=== PATIENT | male | born 1950 | race Caucasian/White ===

== ENCOUNTER 2019-02-12 23:45 | Emergency (ER) | payer MEDICARE, OTHER ==
[~2019-02-12] VITALS: Ht 177.8 cm; Wt 105.7 kg
--- OUTSIDE RECORDS SUMMARY | 2019-02-12 23:49 | XMS REPORT | Summary of Care ---
Author Author [facility] Address Unknown Phone Unavailable Encounter HQ Encntr_alias(FIN) [id number] Date(s): 10/31/16 - 11/29/16 SABIHA Noe Discharge Disposition: Home or Self Care Attending Physician: Stiven Matt MD Vital Signs No data available for this section Problem List Condition Effective Dates Status Health Status Informant Diabetes(Confirmed) Active Hypertension(Confirm Active ed) Arthritis(Confirmed) Active 1 Numbness of Resolved fingers(Confirmed) 1right knee Allergies, Adverse Reactions, Alerts Substance Reaction Severity Status NKDA Active Medications No data available for this section Results No data available for this section Immunizations No data available for this section Procedures Procedure Date Related Diagnosis Body Site ACL - Repair of anterior cruciate ligament Biopsy of thyroid Social History Social History Type Response Alcohol Past Smoking Status Never smoker; Exposure to Tobacco Smoke None; Cigarette Smoking Last 365 Days No; Reg Smoking Cessation Counseling No Assessment and Plan No data available for this section
--- OUTSIDE RECORDS SUMMARY | 2019-02-12 23:49 | XMS REPORT | Summary of Care ---
Author Author [facility] Organization [facility] Address Unknown Phone Unavailable Encounter KALE Peña(MARIO) [id number] Date(s): 09/05/16 - 09/07/16 [facility] [address] [place] [address]- [phone] Final: Unilateral primary osteoarthritis, left knee Discharge Disposition: Home or Self Care Attending Physician: Stiven Matt MD Admitting Physician: Stiven Matt MD Referring Physician: Stiven Matt MD Vital Signs 1 2 3 Most recent to oldest [Reference Range]: 177.8 cm (09/05/16 1:34 PM) 177.8 cm (08/30/16 10:03 AM) Height 97.5 DegF (09/07/16 12:00 PM) 97.7 DegF (09/07/16 8:00 AM) 97.9 DegF (09/07/16 4:11 AM) Temperature Oral [96.4-99.1 DegF] 163/82 mmHg *HI* (09/07/16 12:00 PM) 148/76 mmHg *HI* (09/07/16 8:00 AM) 169/89 mmHg *HI* (09/07/16 4:58 AM) Blood Pressure [90-140/60-90 mmHg] 16 BRMIN (09/07/16 12:00 PM) 16 BRMIN (09/07/16 8:00 AM) 16 BRMIN (09/07/16 4:11 AM) Respiratory Rate [14-20 BRMIN] 79 bpm (09/07/16 12:00 PM) 79 bpm (09/07/16 8:00 AM) 71 bpm (09/07/16 4:58 AM) Peripheral Pulse Rate [60-100 bpm] 108.182 kg (09/05/16 1:34 PM) 102.182 kg (08/30/16 10:03 AM) Weight 34.22 m2 (09/05/16 1:34 PM) 32.32 m2 (08/30/16 10:03 AM) Body Mass Index Problem List Condition Effective Dates Status Health Status Informant Diabetes(Confirmed) Active Hypertension(Confirm Active ed) Arthritis(Confirmed) Active 1 Numbness of Resolved fingers(Confirmed) 1right knee Allergies, Adverse Reactions, Alerts Substance Reaction Severity Status NKDA Active Medications acetaminophen 650 mg, 2 tab, Route: PO, Drug form: TAB, Q4H, Dosing Weight 102.182, kg, PRN Pa in 1-3/Temp > 100.4 F, Start date: 09/05/16 11:59:00 CDT, Duration: 30 day, Stop date: 10/05/16 11:58:00 CDT Notes: Do not exceed 4 gm/day. (Same as: Tylenol) Start Date: 09/05/16 Stop Date: 09/07/16 Status: Discontinued acetaminophen (ANES) Route: IV, Drug form: INJ, ONCE, Stop date: 09/05/16 10:59:00 CDT Start Date: 09/05/16 Stop Date: 09/05/16 Status: Completed Al hydroxide/Mg hydroxide/simethicone 200 mg-200 mg-20 mg/5 mL oral suspension 30 ml, Route: PO, Drug Form: SUSP, Dosing Weight 102.182, kg, Q4H, PRN Indigesti on, Start date: 09/05/16 11:59:00 CDT, Duration: 30 day, Stop date: 10/05/16 11: 58:00 CDT Notes: (aluminum hydroxide-magnesium hyd-simethicone 298-209-03km/5ml 30 ml ud S US) Start Date: 09/05/16 Stop Date: 09/07/16 Status: Discontinued aspirin 325 mg, 1 tab, Route: PO, Drug form: TAB, Q12H, Dosing Weight 102.182, kg, For p atients with risk of bleeding, Start date: 09/05/16 16:00:00 CDT, Duration: 30 d ay, Stop date: 10/05/16 9:00:00 CDT Notes: Take with food. Start Date: 09/05/16 Stop Date: 09/07/16 Status: Discontinued aspirin 325 mg tablet, enteric coated 325 mg, PO, Q12H, # 60 tab, 0 Refill(s) Start Date: 09/06/16 Status: Ordered aspirin 325 mg tablet, enteric coated 325 mg, Route: PO, BID, Dosing Weight 102.182, kg, Start date: 09/05/16 17:00:00 CDT, Duration: 30 day, Stop date: 10/05/16 9:00:00 CDT Start Date: 09/05/16 Stop Date: 09/05/16 Status: Deleted atorvastatin 20 mg, 2 tab, Route: PO, Drug form: TAB, Bedtime, Dosing Weight 102.182, kg, Sta rt date: 09/05/16 21:00:00 CDT, Duration: 30 day, Stop date: 10/04/16 21:00:00 C DT Notes: (Same As: Lipitor) Start Date: 09/05/16 Stop Date: 09/07/16 Status: Discontinued atorvastatin 20 mg oral tablet 20 mg=1 tab, PO, Bedtime, # 30 tab, 0 Refill(s) Start Date: 08/30/16 Status: Ordered ceFAZolin (ANES) Route: IV, Drug form: INJ, ONCE, Stop date: 09/05/16 10:59:00 CDT Start Date: 09/05/16 Stop Date: 09/05/16 Status: Completed ceFAZolin (SCIP) 1 gm, 100 mL, Route: IVPB, Drug form: INJ, Q8H, Dosing Weight 102.182, kg, Start date: 09/05/16 16:15:00 CDT, Duration: 1 doses or times, Stop date: 09/05/16 16 :15:00 CDT Start Date: 09/05/16 Stop Date: 09/05/16 Status: Completed dexamethasone (ANES) Route: IV, Drug form: INJ, ONCE, Stop date: 09/05/16 10:59:00 CDT Start Date: 09/05/16 Stop Date: 09/05/16 Status: Completed Dextrose 50% Syringe 12.5 gm, 25 mL, Route: IVP, Drug Form: INJ, Dosing Weight 102.182, kg, PRN, PRN Blood Glucose Results, Start date: 09/05/16 13:28:00 CDT, Duration: 30 day, Stop date: 10/05/16 13:27:00 CDT Start Date: 09/05/16 Stop Date: 09/07/16 Status: Discontinued Dextrose 50% Syringe 25 gm, 50 mL, Route: IVP, Drug Form: INJ, Dosing Weight 102.182, kg, PRN, PRN Bl ood Glucose Results, Start date: 09/05/16 13:28:00 CDT, Duration: 30 day, Stop d ate: 10/05/16 13:27:00 CDT Start Date: 09/05/16 Stop Date: 09/07/16 Status: Discontinued Dilaudid 0.5 mg, Route: IVP, ONCE, Dosing Weight 102.182, kg, Priority: STAT, Start date: 09/05/16 12:18:00 CDT, Stop date: 09/05/16 12:18:00 CDT Start Date: 09/05/16 Stop Date: 09/05/16 Status: Completed Dilaudid 0.5 mg, Route: IVP, ONCE, Dosing Weight 102.182, kg, Priority: STAT, Start date: 09/05/16 12:39:00 CDT, Stop date: 09/05/16 12:39:00 CDT Start Date: 09/05/16 Stop Date: 09/05/16 Status: Completed diphenhydrAMINE 25 mg, 1 tab, Route: PO, Drug form: TAB, Q6H, Dosing Weight 102.182, kg, PRN Itc césar, Start date: 09/05/16 11:59:00 CDT, Duration: 30 day, Stop date: 10/05/16 1 1:58:00 CDT Start Date: 09/05/16 Stop Date: 09/07/16 Status: Discontinued docusate sodium 100 mg oral capsule 100 mg, 1 cap, Route: PO, Drug form: CAP, BID, Dosing Weight 102.182, kg, Start date: 09/05/16 17:00:00 CDT, Duration: 30 day, Stop date: 10/05/16 9:00:00 CDT Notes: (Same as: Colace) (Do Not Crush) Start Date: 09/05/16 Stop Date: 09/07/16 Status: Discontinued Dulcolax Laxative 5 mg, 1 tab, Route: PO, Drug form: ECTAB, Q24H, Dosing Weight 102.182, kg, PRN C onstipation, Start date: 09/05/16 11:59:00 CDT, Duration: 30 day, Stop date: 11:58:00 CDT Notes: (Same As: Dulcolax, Correctol) (Do Not Crush) "Do Not Crush" Start Date: 09/05/16 Stop Date: 09/07/16 Status: Discontinued ePHEDrine (ANES) Route: IV, Drug form: INJ, ONCE, Stop date: 09/05/16 11:59:00 CDT Start Date: 09/05/16 Stop Date: 09/05/16 Status: Completed fentaNYL (ANES) Route: IV, Drug form: INJ, ONCE, Stop date: 09/05/16 10:59:00 CDT Start Date: 09/05/16 Stop Date: 09/05/16 Status: Completed glucagon 1 mg, Route: IM, Drug form: PDR/INJ, PRN, Dosing Weight 102.182, kg, PRN Blood G lucose Results, Start date: 09/05/16 13:28:00 CDT, Duration: 30 day, Stop date: 10/05/16 13:27:00 CDT Start Date: 09/05/16 Stop Date: 09/07/16 Status: Discontinued glycopyrrolate (ANES) Route: IV, Drug form: INJ, ONCE, Stop date: 09/05/16 11:34:00 CDT Start Date: 09/05/16 Stop Date: 09/05/16 Status: Completed hydrALAZINE 10 mg, 0.5 mL, Route: IVP, Drug form: INJ, Q6H, Dosing Weight 102.182, kg, PRN E levated BP, Start date: 09/05/16 13:19:00 CDT, Duration: 30 day, Stop date: 09/17 03/05 13:18:00 CDT, sbp> 155 Notes: (Same as: Apresoline)Push over 5 minutes Start Date: 09/05/16 Stop Date: 09/07/16 Status: Discontinued hydromorphone 0.5 mg, 0.5 mL, Route: IVP, Drug form: INJ, Q3H, Dosing Weight 102.182, kg, PRN Pain Score 7-10, Start date: 09/05/16 11:59:00 CDT, Duration: 30 day, Stop date: 10/05/16 11:58:00 CDT Start Date: 09/05/16 Stop Date: 09/07/16 Status: Discontinued insulin aspart 10 unit, 0.1 mL, Route: SUB-Q, Drug form: SOLN, TID-Before Meals, Dosing Weight 102.182, kg, PRN Blood Glucose Results, Start date: 09/05/16 13:28:00 CDT, Durat ion: 30 day, Stop date: 10/05/16 13:27:00 CDT Notes: Roll in palms of hands gently; Do not shake vigorously. (Same as: Jason Dotson)"single patient use only"WASTE: F/P - Black; E - Municipal Trash Bin Stable f or 28 days at room temperature.Expires in days from Date Start Date: 09/05/16 Stop Date: 09/07/16 Status: Discontinued insulin aspart 2 unit, 0.02 mL, Route: SUB-Q, Drug form: SOLN, TID-Before Meals, Dosing Weight 102.182, kg, PRN Blood Glucose Results, Start date: 09/05/16 13:28:00 CDT, Durat ion: 30 day, Stop date: 10/05/16 13:27:00 CDT Notes: Roll in palms of hands gently; Do not shake vigorously. (Same as: Jason Dotson)"single patient use only"WASTE: F/P - Black; E - Municipal Trash Bin Stable f or 28 days at room temperature.Expires in days from Date Start Date: 09/05/16 Stop Date: 09/07/16 Status: Discontinued insulin aspart 8 unit, 0.08 mL, Route: SUB-Q, Drug form: SOLN, TID-Before Meals, Dosing Weight 102.182, kg, PRN Blood Glucose Results, Start date: 09/05/16 13:28:00 CDT, Durat ion: 30 day, Stop date: 10/05/16 13:27:00 CDT Notes: Roll in palms of hands gently; Do not shake vigorously. (Same as: NovoLUIS G)"single patient use only"WASTE: F/P - Black; E - Municipal Trash Bin Stable f or 28 days at room temperature.Expires in days from Date Start Date: 09/05/16 Stop Date: 09/07/16 Status: Discontinued insulin aspart 6 unit, 0.06 mL, Route: SUB-Q, Drug form: SOLN, TID-Before Meals, Dosing Weight 102.182, kg, PRN Blood Glucose Results, Start date: 09/05/16 13:28:00 CDT, Durat ion: 30 day, Stop date: 10/05/16 13:27:00 CDT Notes: Roll in palms of hands gently; Do not shake vigorously. (Same as: NovoLUIS G)"single patient use only"WASTE: F/P - Black; E - Municipal Trash Bin Stable f or 28 days at room temperature.Expires in days from Date Start Date: 09/05/16 Stop Date: 09/07/16 Status: Discontinued insulin aspart 4 unit, 0.04 mL, Route: SUB-Q, Drug form: SOLN, TID-Before Meals, Dosing Weight 102.182, kg, PRN Blood Glucose Results, Start date: 09/05/16 13:28:00 CDT, Durat ion: 30 day, Stop date: 10/05/16 13:27:00 CDT Notes: Roll in palms of hands gently; Do not shake vigorously. (Same as: NovoLUIS G)"single patient use only"WASTE: F/P - Black; E - Municipal Trash Bin Stable f or 28 days at room temperature.Expires in days from Date Start Date: 09/05/16 Stop Date: 09/07/16 Status: Discontinued insulin aspart 1 unit, 0.01 mL, Route: SUB-Q, Drug form: SOLN, Bedtime, Dosing Weight 102.182, kg, PRN Blood Glucose Results, Start date: 09/05/16 13:28:00 CDT, Duration: 30 d ay, Stop date: 10/05/16 13:27:00 CDT Notes: Roll in palms of hands gently; Do not shake vigorously. (Same as: Jason Dotson)"single patient use only"WASTE: F/P - Black; E - Municipal Trash Bin Stable f or 28 days at room temperature.Expires in days from Date Start Date: 09/05/16 Stop Date: 09/07/16 Status: Discontinued insulin aspart 2 unit, 0.02 mL, Route: SUB-Q, Drug form: SOLN, Bedtime, Dosing Weight 102.182, kg, PRN Blood Glucose Results, Start date: 09/05/16 13:28:00 CDT, Duration: 30 d ay, Stop date: 10/05/16 13:27:00 CDT Notes: Roll in palms of hands gently; Do not shake vigorously. (Same as: Jason Dotson)"single patient use only"WASTE: F/P - Black; E - Municipal Trash Bin Stable f or 28 days at room temperature.Expires in days from Date Start Date: 09/05/16 Stop Date: 09/07/16 Status: Discontinued insulin aspart 4 unit, 0.04 mL, Route: SUB-Q, Drug form: SOLN, Bedtime, Dosing Weight 102.182, kg, PRN Blood Glucose Results, Start date: 09/05/16 13:28:00 CDT, Duration: 30 d ay, Stop date: 10/05/16 13:27:00 CDT Notes: Roll in palms of hands gently; Do not shake vigorously. (Same as: Jason Dotson)"single patient use only"WASTE: F/P - Black; E - Municipal Trash Bin Stable f or 28 days at room temperature.Expires in days from Date Start Date: 09/05/16 Stop Date: 09/07/16 Status: Discontinued insulin aspart 3 unit, 0.03 mL, Route: SUB-Q, Drug form: SOLN, Bedtime, Dosing Weight 102.182, kg, PRN Blood Glucose Results, Start date: 09/05/16 13:28:00 CDT, Duration: 30 d ay, Stop date: 10/05/16 13:27:00 CDT Notes: Roll in palms of hands gently; Do not shake vigorously. (Same as: NovoLUIS G)"single patient use only"WASTE: F/P - Black; E - Municipal Trash Bin Stable f or 28 days at room temperature.Expires in days from Date Start Date: 09/05/16 Stop Date: 09/07/16 Status: Discontinued irbesartan 300 mg, 2 tab, Route: PO, Drug form: TAB, Daily, Dosing Weight 102.182, kg, Star t date: 09/06/16 9:00:00 CDT, Duration: 30 day, Stop date: 10/05/16 9:00:00 CDT Notes: (Same as:Avapro) Start Date: 09/06/16 Stop Date: 09/07/16 Status: Discontinued irbesartan 300 mg oral tablet 300 mg=1 tab, PO, Daily, # 30 tab, 0 Refill(s) Start Date: 08/30/16 Status: Ordered Lactated Ringers 1,000 mL 1,000 mL, Rate: 40 ml/hr, Infuse over: 25 hr, Route: IV, Dosing Weight 102.182 k g, Total Volume: 1,000, Start date: 09/05/16 8:15:00 CDT, Duration: 1 day, Stop date: 09/06/16 8:14:00 CDT Start Date: 09/05/16 Stop Date: 09/05/16 Status: Discontinued Lactated Ringers 1,000 mL 1,000 mL, Rate: 100 ml/hr, Infuse over: 10 hr, Route: IV, Dosing Weight 102.182 kg, Total Volume: 1,000, Start date: 09/05/16 11:59:00 CDT, Duration: 30 day, St op date: 10/05/16 11:58:00 CDT Start Date: 09/05/16 Stop Date: 09/07/16 Status: Discontinued lidocaine (ANES) Route: IV, Drug form: INJ, ONCE, Stop date: 09/05/16 10:59:00 CDT Start Date: 09/05/16 Stop Date: 09/05/16 Status: Completed LR 1000 mL INJ (ANES) Route: IV, Total Volume: 1,000, Start date: 09/05/16 10:03:00 CDT, Stop date: 11:03:00 CDT Start Date: 09/05/16 Stop Date: 09/05/16 Status: Completed meloxicam 7.5 mg oral tablet 7.5 mg=1 tab, PO, Daily, # 30 tab, 0 Refill(s) Start Date: 08/30/16 Stop Date: 09/06/16 Status: Discontinued metFORMIN 500 mg oral tablet 500 mg=1 tab, PO, Daily, 0 Refill(s) Start Date: 08/30/16 Status: Ordered midazolam (ANES) Route: IV, Drug form: SOLN, ONCE, Stop date: 09/05/16 10:59:00 CDT Start Date: 09/05/16 Stop Date: 09/05/16 Status: Completed Gillett 7.5/325 oral tablet See Instructions, PRN Pain Score 7-10, 1- tab PO Q6-8H as needed, # 50 tab, 0 Re fill(s), given to patient Start Date: 09/07/16 Stop Date: 09/21/16 Status: Ordered Gillett 7.5/325 oral tablet 1 tab, Route: PO, Drug Form: TAB, Dosing Weight 102.182, kg, Q4H, PRN Pain Score 4-6, Start date: 09/05/16 11:59:00 CDT, Duration: 30 day, Stop date: 10/05/16 1 1:58:00 CDT Notes: Same as Gillett 325-7.5mg Do not exceed 4gm/day of acetaminophen. Start Date: 09/05/16 Stop Date: 09/07/16 Status: Discontinued ondansetron 4 mg, 2 mL, Route: IVP, Drug form: INJ, Q8H, Dosing Weight 102.182, kg, PRN Naus ea & Vomiting, Start date: 09/05/16 11:59:00 CDT, Duration: 30 day, Stop date: 10/05/16 11:58:00 CDT Notes: (Same as: Eliane) MEDICATION WASTE Product Size: 4 mgProduct Was mae: ___ mg Start Date: 09/05/16 Stop Date: 09/07/16 Status: Discontinued ondansetron (ANES) Route: IV, Drug form: INJ, ONCE, Stop date: 09/05/16 10:59:00 CDT Start Date: 09/05/16 Stop Date: 09/05/16 Status: Completed propofol (ANES) Route: IV, Drug form: INJ, ONCE, Stop date: 09/05/16 10:59:00 CDT Start Date: 09/05/16 Stop Date: 09/05/16 Status: Completed succinylcholine (ANES) Route: IV, Drug form: INJ, ONCE, Stop date: 09/05/16 10:59:00 CDT Start Date: 09/05/16 Stop Date: 09/05/16 Status: Completed tranexamic acid (ANES) Route: IV, Drug form: INJ, ONCE, Stop date: 09/05/16 11:54:00 CDT Start Date: 09/05/16 Stop Date: 09/05/16 Status: Completed Results BLOOD BANK RESULTS Most recent to 1 2 oldest [Reference Range]: ABO/Rh A POS *Unknown* (08/30/16 10:47 AM) Antibody Scrn Negative (08/30/16 10:47 AM) IMMUNOLOGY Most recent to 1 2 oldest [Reference Range]: HIV 1/2 Ab Negative [Negative] *NA* (08/30/16 10:47 AM) HEMATOLOGY Most recent to 1 2 oldest [Reference Range]: Hgb [14.0-18.0 g/dL] 13.4 g/dL 14.0 g/dL *LOW* (09/06/16 4:09 AM) (09/07/16 4:28 AM) Hct [42.0-54.0 %] 38.8 % 40.6 % *LOW* *LOW* (09/07/16 4:28 AM) (09/06/16 4:09 AM) PT [12.0-14.7 13.4 seconds seconds] (08/30/16 10:47 AM) INR [0.85-1.17] 1.00 (08/30/16 10:47 AM) PTT [22.9-35.8 27.6 seconds seconds] (08/30/16 10:47 AM) Immunizations No data available for this section Procedures Procedure Date Related Diagnosis Body Site ACL - Repair of anterior cruciate ligament Biopsy of thyroid Social History Social History Type Response Alcohol Past Smoking Status Never smoker; Exposure to Tobacco Smoke None; Cigarette Smoking Last 365 Days No; Reg Smoking Cessation Counseling No Assessment and Plan Extracted from: Title: Clinical Document Author: Yue Steen MD Date: 09/07/16 Medicine Progress Daily Chief Complaint: Hypertension Subjective & Interval history: Patient seen and examined. Patient with new complaints. No acute events. Objective: Vital Signs (last 24 hrs) Last Charted Temp Oral97.5 DegF (SEP 07:) Heart Rate [id number] bpm (SEP 07:) Resp Rate 16 BRMIN (SEP 07:) SBPH 163mmHg (SEP 07:) DBP82 mmHg (SEP 07:) SpO2L 93% (SEP 07:) Medications and labs reviewed as below. PHYSICAL EXAM: GENERAL: AAO NAD HEENT: NCAT, perrl, eomi NECK: Supple, midline trachea LUNGS: CTAB, No rales, rhonchi or wheezes. CARDIOVASCULAR: S1, S2 normal. No M/G/R. ABDOMEN: Soft, ND, NT. BS + EXTREMITIES: No C/C , or Edema SKIN: No rashes. MUSCULOSKELETAL: Moving all extremities. Neuro: No new motor or sensory deficits IMPRESSION: 1. A 66-year-old male status post right knee total arthroplasty. 2. Diabetes without long-term use of insulin. 3. Benign hypertension. 4. Hyperlipidemia. 5. Osteoarthritis. PLAN & TREATMENT Continue home medications. Insulin sliding scale with Accu-Cheks. Blood pressures controlled. PT and OT. For details see orders. Plan of care discussed with the patient and spouse Disposition: Possible home today Input/Output RecordInOutBal 08/2223hr Tot 0 0 0 08/2123hr Tot [phone] Scheduled Meds (4):aspirin, atorvastatin, docusate (docusate sodium 100 mg oral capsule), irbesartan Unscheduled Meds: None PRN Meds (20):Al hydroxide/Mg hydroxide/simethicone (Al hydroxide/Mg hydroxide/simethicone 200 mg-200 mg-20 mg/5 mL oral suspension), Dextrose 50% in Water IV (Dextrose 50% Syringe), Dextrose 50% in Water IV (Dextrose 50% Syringe), acetaminophen-hydrocodone (Gillett 7.5/325 oral tablet), acetaminophen, bisacodyl (Dulcolax Laxative), diphenhydrAMINE, glucagon, hydrALAZINE, hydromorphone, insulin aspart, insulin aspart, insulin aspart, insulin aspart, insulin aspart, insulin aspart, insulin aspart, insulin aspart, insulin aspart, ondansetron One Time Meds: None Continuous Infusions (1):Lactated Ringers 1,000 mL Labs (Last four charted values) Hgb L 13.4(SEP 07)14.0(SEP 06) Hct L 38.8(SEP 07)L 40.6(SEP 06) PT 13.4(AUG 30) INR 1.00(AUG 30) PTT 27.6(AUG 30)
--- OUTSIDE RECORDS SUMMARY | 2019-02-12 23:49 | XMS REPORT | Summary of Care ---
Author Author [facility] Address Unknown Phone Unavailable Encounter HQ Encntr_aliraphael(FIN) [id number] Date(s): 08/10/16 - 09/08/16 SABIHA Noe Final: Pain in left knee Final: Stiffness of unspecified knee, not elsewhere classified Final: Difficulty in walking, not elsewhere classified Discharge Disposition: Home or Self Care Attending [...]
--- OUTSIDE RECORDS SUMMARY | 2019-02-12 23:49 | XMS REPORT | Summary of Care ---
Author Author [facility] Address Unknown Phone Unavailable Encounter HQ Encntr_alias(FIN) [id number] Date(s): 09/29/16 - 10/28/16 SABIHA Noe Discharge Disposition: Home or Self [...]
--- OUTSIDE RECORDS SUMMARY | 2019-02-12 23:49 | XMS REPORT | Summary of Care ---
Author Author [facility] Address Unknown Phone Unavailable Encounter HQ Encntr_alias(FIN) [id number] Date(s): 06/26/18 - 07/25/18 [facility]ly [facility] Discharge Disposition: Home or Self Care Attending [...] Procedures Procedure Date Related Diagnosis Body Site Status ACL - Repair of anterior cruciate ligament Completed Biopsy of thyroid Completed Social History Social History Type Response Alcohol Past Smoking Status Never smoker; Exposure to Tobacco Smoke None; Cigarette Smoking Last 365 Days No; Reg Smoking Cessation Counseling No entered on: 09/05/16 Assessment and Plan No data available for this section
--- OUTSIDE RECORDS SUMMARY | 2019-02-12 23:49 | XMS REPORT | Summary of Care ---
Author Author [facility] Address Unknown Phone Unavailable Encounter HQ Rob_kelton(FIN) [id number] Date(s): 06/26/18 - 07/25/18 [facility] Encounter Diagnosis Unspecified rotator cuff tear or rupture of right shoulder, not specified as tra umatic (Final) - 07/31/18 Pain in right shoulder (Final) - Stiffness of right shoulder, not elsewhere classified (Final) - Muscle weakness (generalized) (Final) - Discharge Disposition: Home or Self Care Attending Physician: Stiven Matt MD Vital Signs No data available for this section Problem List Condition Effective Dates Status Health Status Informant Diabetes(Confirmed) Active Hypertension(Confirm Active ed) Arthritis(Confirmed) Active 1 Numbness of Resolved fingers(Confirmed) 1right knee Allergies, Adverse Reactions, Alerts No Known Medication Allergies Medications No data available for this section [...]
--- OUTSIDE RECORDS SUMMARY | 2019-02-12 23:49 | XMS REPORT | Continuity of Care Document ---
Author Author [employer] Address Unknown Phone Unavailable Care Team Providers Care Financial Project Manager Name Role Phone [employer] Information [employer] Unavailable Unavailable Problems Problem Status Onset Date Classification Date Reported Comments Source Unspecified rotator cuff tear or rupture of right shoulder, not specified as traumatic 07/31/2018 02/12/2019 [facility] [place] RT SHOULDER Active 06/06/2018 [facility] [place] RIGHT KNEE TKR Active 09/05/2016 [facility] [place] UNK Active 08/08/2016 [facility] IDCK KNEE OA Active 08/02/2016 [facility] [place] Diabetes mellitus (disorder) Active Problem 02/12/2019 [facility] [place] Hypertensive disorder, systemic arterial (disorder) Active Problem 02/12/2019 [facility] [place] Arthritis (disorder) Active Problem 02/12/2019 right knee [facility] [place] Numbness of finger (finding) Resolved Problem 02/12/2019 [facility] [place] Pain in left knee 09/11/2016 [facility] [place] Stiffness of unspecified knee, not elsewhere classified 09/11/2016 [facility] [place] Difficulty in walking, not elsewhere classified 09/11/2016 [facility] [place] Unilateral primary osteoarthritis, left knee 09/10/2016 [facility] in right shoulder 02/12/2019 [facility] [place] Stiffness of right shoulder, not elsewhere classified 02/12/2019 [facility] [place] Muscle weakness (generalized) 02/12/2019 [facility] [place] UNILATERAL PRIMARY OSTEOARTHRITIS, LEFT Active [facility] [place] UNILATERAL PRIMARY OSTEOARTHRITIS, RIGHT Active [facility] [place] PAIN IN RIGHT KNEE Active [facility] [place] PAIN IN LEFT KNEE Active [facility] [place] STIFFNESS OF UNSPECIFIED KNEE, NOT ELSEW Active [facility] [place] DIFFICULTY IN WALKING, NOT ELSEWHERE CLA Active [facility] [place] AFTERCARE FOLLOWING JOINT REPLACEMENT HECTOR Active [facility] [place] MUSCLE WEAKNESS (GENERALIZED) Active [facility] [place] STIFFNESS OF RIGHT KNEE, NOT ELSEWHERE C Active [facility] [place] Medications Medication Details Route Status Patient Instructions Ordering Provider Order Date Source Acetaminophen 325 MG / Hydrocodone Bitartrate 7.5 MG Oral Tablet [[place] 7.5/325] See Instructions, PRN Pain Score 7-10, 1- tab PO Q6-8H as needed, # 50 tab, 0 Refill(s), given to patient Active 09/07/2016 [facility] Aspirin 325 MG Enteric Coated Tablet 325 mg, PO, Q12H, # 60 tab, 0 Refill(s) Active 09/06/2016 [facility] irbesartan 300 mg, 2 tab, Route: PO, Drug form: TAB, Daily, Dosing Weight 102.182, kg, Start date: 09/06/16 9:00:00 CDT, Duration: 30 day, Stop date: 10/05/16 9:00:00 CDTNotes: (Same as:Avapro) No Longer Active 09/06/2016 [facility] atorvastatin 20 mg, 2 tab, Route: PO, Drug form: TAB, Bedtime, Dosing Weight 102.182, kg, Start date: 09/05/16 21:00:00 CDT, Duration: 30 day, Stop date: 10/04/16 21:00:00 CDTNotes: (Same As: Lipitor) No Longer Active 09/06/2016 [facility] Aspirin 325 MG Enteric Coated Tablet 325 mg, Route: PO, BID, Dosing Weight 102.182, kg, Start date: 09/05/16 17:00:00 CDT, Duration: 30 day, Stop date: 10/05/16 9:00:00 CDT Inactive 09/05/2016 [facility] Docusate Sodium 100 MG Oral Capsule 100 mg, 1 cap, Route: PO, Drug form: CAP, BID, Dosing Weight 102.182, kg, Start date: 09/05/16 17:00:00 CDT, Duration: 30 day, Stop date: 10/05/16 9:00:00 CDTNotes: (Same as: Colace) (Do Not Crush) No Longer Active 09/05/2016 [facility] Cefazolin 1 gm, 100 mL, Route: IVPB, Drug form: INJ, Q8H, Dosing Weight 102.182, kg, Start date: 09/05/16 16:15:00 CDT, Duration: 1 doses or times, Stop date: 09/05/16 16:15:00 CDT Inactive 09/05/2016 [facility] Aspirin 325 mg, 1 tab, Route: PO, Drug form: TAB, Q12H, Dosing Weight 102.182, kg, For patients with risk of bleeding, Start date: 09/05/16 16:00:00 CDT, Duration: 30 day, Stop date: 10/05/16 9:00:00 CDTNotes: Take with food. No Longer Active 09/05/2016 [facility] Dextrose 50% Syringe 12.5 gm, 25 mL, Route: IVP, Drug Form: INJ, Dosing Weight 102.182, kg, PRN, PRN Blood Glucose Results, Start date: 09/05/16 13:28:00 CDT, Duration: 30 day, Stop date: 10/05/16 13:27:00 CDT No Longer Active 09/05/2016 [facility] Glucagon 1 mg, Route: IM, Drug form: PDR/INJ, PRN, Dosing Weight 102.182, kg, PRN Blood Glucose Results, Start date: 09/05/16 13:28:00 CDT, Duration: 30 day, Stop date: 10/05/16 13:27:00 CDT No Longer Active 09/05/2016 [facility] Insulin, Aspart, Human 10 unit, 0.1 mL, Route: SUB-Q, Drug form: SOLN, TID-Before Meals, Dosing Weight 102.182, kg, PRN Blood Glucose Results, Start date: 09/05/16 13:28:00 CDT, Duration: 30 day, Stop date: 10/05/16 13:27:00 CDTNotes: Roll in palms of hands gently; Do not shake vigorously. (Same as: NovoLOG) "single patient use only" WASTE: F/P - Black; E - Municipal Trash Bin Stable for 28 days at room temperature. Expires in days from Date No Longer Active 09/05/2016 [facility] Hydralazine 10 mg, 0.5 mL, Route: IVP, Drug form: INJ, Q6H, Dosing Weight 102.182, kg, PRN Elevated BP, Start date: 09/05/16 13:19:00 CDT, Duration: 30 day, Stop date: 10/05/16 13:18:00 CDT, sbp> 155Notes: (Same as: Apresoline) Push over 5 minutes No Longer Active 09/05/2016 [facility] Dilaudid 0.5 mg, Route: IVP, ONCE, Dosing Weight 102.182, kg, Priority: STAT, Start date: 09/05/16 12:39:00 CDT, Stop date: 09/05/16 12:39:00 CDT Inactive 09/05/2016 [facility] Dilaudid 0.5 mg, Route: IVP, ONCE, Dosing Weight 102.182, kg, Priority: STAT, Start date: 09/05/16 12:18:00 CDT, Stop date: 09/05/16 12:18:00 CDT Inactive 09/05/2016 [facility] ePHEDrine (ANES) Route: IV, Drug form: INJ, ONCE, Stop date: 09/05/16 11:59:00 CDT Inactive 09/05/2016 [facility] Acetaminophen 325 MG / Hydrocodone Bitartrate 7.5 MG Oral Tablet [[place] 7.5/325] 1 tab, Route: PO, Drug Form: TAB, Dosing Weight 102.182, kg, Q4H, PRN Pain Score 4-6, Start date: 09/05/16 11:59:00 CDT, Duration: 30 day, Stop date: 10/05/16 11:58:00 CDTNotes: Same as [place] 325-7.5mg Do not exceed 4gm/day of acetaminophen. No Longer Active 09/05/2016 [facility] Diphenhydramine 25 mg, 1 tab, Route: PO, Drug form: TAB, Q6H, Dosing Weight 102.182, kg, PRN Itching, Start date: 09/05/16 11:59:00 CDT, Duration: 30 day, Stop date: 10/05/16 11:58:00 CDT No Longer Active 09/05/2016 [facility] Dulcolax Laxative 5 mg, 1 tab, Route: PO, Drug form: ECTAB, Q24H, Dosing Weight 102.182, kg, PRN Constipation, Start date: 09/05/16 11:59:00 CDT, Duration: 30 day, Stop date: 10/05/16 11:58:00 CDTNotes: (Same As: Dulcolax, Correctol) (Do Not Crush) "Do Not Crush" No Longer Active 09/05/2016 [facility] Al hydroxide/Mg hydroxide/simethicone 200 mg-200 mg-20 mg/5 mL oral suspension 30 ml, Route: PO, Drug Form: SUSP, Dosing Weight 102.182, kg, Q4H, PRN Indigestion, Start date: 09/05/16 11:59:00 CDT, Duration: 30 day, Stop date: 10/05/16 11:58:00 CDTNotes: (aluminum hydroxide-magnesium hyd- simethicone 702-235-42me/5ml 30 ml ud MARIBEL) No Longer Active 09/05/2016 [facility] Ondansetron 4 mg, 2 mL, Route: IVP, Drug form: INJ, Q8H, Dosing Weight 102.182, kg, PRN Nausea & Vomiting, Start date: 09/05/16 11:59:00 CDT, Duration: 30 day, Stop date: 10/05/16 11:58:00 CDTNotes: (Same as: Eliane) MEDICATION WASTE Product Size: 4 mg Product Wasted: ___ mg No Longer Active 09/05/2016 [facility] Hydromorphone 0.5 mg, 0.5 mL, Route: IVP, Drug form: INJ, Q3H, Dosing Weight 102.182, kg, PRN Pain Score 7-10, Start date: 09/05/16 11:59:00 CDT, Duration: 30 day, Stop date: 10/05/16 11:58:00 CDT No Longer Active 09/05/2016 [facility] Lactated Ringers 1,000 mL 1,000 mL, Rate: 100 ml/hr, Infuse over: 10 hr, Route: IV, Dosing Weight 102.182 kg, Total Volume: 1,000, Start date: 09/05/16 11:59:00 CDT, Duration: 30 day, Stop date: 10/05/16 11:58:00 CDT No Longer Active 09/05/2016 [facility] Acetaminophen 650 mg, 2 tab, Route: PO, Drug form: TAB, Q4H, Dosing Weight 102.182, kg, PRN Pain 1-3/Temp > 100.4 F, Start date: 09/05/16 11:59:00 CDT, Duration: 30 day, Stop date: 10/05/16 11:58:00 CDTNotes: Do not exceed 4 gm/day. (Same as: Tylenol) No Longer Active 09/05/2016 [facility] tranexamic acid (ANES) Route: IV, Drug form: INJ, ONCE, Stop date: 09/05/16 11:54:00 CDT Inactive 09/05/2016 [facility] glycopyrrolate (ANES) Route: IV, Drug form: INJ, ONCE, Stop date: 09/05/16 11:34:00 CDT Inactive 09/05/2016 [facility] acetaminophen (ANES) Route: IV, Drug form: INJ, ONCE, Stop date: 09/05/16 10:59:00 CDT Inactive 09/05/2016 [facility] ondansetron (ANES) Route: IV, Drug form: INJ, ONCE, Stop date: 09/05/16 10:59:00 CDT Inactive 09/05/2016 [facility] dexamethasone (ANES) Route: IV, Drug form: INJ, ONCE, Stop date: 09/05/16 10:59:00 CDT Inactive 09/05/2016 [facility] fentaNYL (ANES) Route: IV, Drug form: INJ, ONCE, Stop date: 09/05/16 10:59:00 CDT Inactive 09/05/2016 [facility] propofol (ANES) Route: IV, Drug form: INJ, ONCE, Stop date: 09/05/16 10:59:00 CDT Inactive 09/05/2016 [facility] lidocaine (ANES) Route: IV, Drug form: INJ, ONCE, Stop date: 09/05/16 10:59:00 CDT Inactive 09/05/2016 [facility] ceFAZolin (ANES) Route: IV, Drug form: INJ, ONCE, Stop date: 09/05/16 10:59:00 CDT Inactive 09/05/2016 [facility] succinylcholine (ANES) Route: IV, Drug form: INJ, ONCE, Stop date: 09/05/16 10:59:00 CDT Inactive 09/05/2016 [facility] midazolam (ANES) Route: IV, Drug form: SOLN, ONCE, Stop date: 09/05/16 10:59:00 CDT Inactive 09/05/2016 [facility] LR 1000 mL INJ (ANES) Route: IV, Total Volume: 1,000, Start date: 09/05/16 10:03:00 CDT, Stop date: 09/05/16 11:03:00 CDT Inactive 09/05/2016 [facility] Lactated Ringers 1,000 mL 1,000 mL, Rate: 40 ml/hr, Infuse over: 25 hr, Route: IV, Dosing Weight 102.182 kg, Total Volume: 1,000, Start date: 09/05/16 8:15:00 CDT, Duration: 1 day, Stop date: 09/06/16 8:14:00 CDT Inactive 09/05/2016 [facility] meloxicam 7.5 mg oral tablet 7.5 mg=1 tab, PO, Daily, # 30 tab, 0 Refill(s) No Longer Active 08/30/2016 [facility] Metformin hydrochloride 500 MG Oral Tablet 500 mg=1 tab, PO, Daily, 0 Refill(s) Active 08/30/2016 [facility] atorvastatin 20 mg oral tablet 20 mg=1 tab, PO, Bedtime, # 30 tab, 0 Refill(s) Active 08/30/2016 [facility] irbesartan 300 mg oral tablet 300 mg=1 tab, PO, Daily, # 30 tab, 0 Refill(s) Active 08/30/2016 [facility] Allergies, Adverse Reactions, Alerts Substance Category Reaction Severity Reaction type Status Date Reported Comments Source No Known Medication Allergies Assertion Drug allergy [facility] [place] Immunizations No Data Provided for This Section Results Order Name Results Value Reference Range Date Interpretation Comments Source HEMATOLOGY Hct 38.8 42.0 - 54.0 09/07/2016 [facility] HEMATOLOGY Hgb 13.4 14.0 - 18.0 09/07/2016 [facility] HEMATOLOGY Hct 40.6 42.0 - 54.0 09/06/2016 [facility] Hgb 14.0 14.0 - 18.0 09/06/2016 [facility] BLOOD BANK RESULTS Antibody Scrn Negative (08/30/16 10:47 AM) 08/30/2016 [facility] BLOOD BANK RESULTS ABO/Rh A POS 08/30/2016 [facility] HEMATOLOGY PTT 27.6 22.9 - 35.8 08/30/2016 [facility] HEMATOLOGY PT 13.4 12.0 - 14.7 08/30/2016 [facility] HEMATOLOGY INR 1.00 0.85 - 1.17 08/30/2016 [facility] IMMUNOLOGY HIV 1/2 Ab Negative *NA* (08/30/16 10:47 AM) Negative 08/30/2016 [facility] Pathology Reports No Data Provided for This Section Diagnostic Reports Report Value Date Source Knee 1-2 Views unilateral DX Patient Name: AZEB BEJARANO : 1950; Age: 66 years y/o Male MR: [id number] * RIGHT KNEE, postoperative 2 views HISTORY: Right knee arthritis, status post right knee arthroplasty. Technique: Frontal and lateral radiographs of the right knee were obtained. The preoperative study of 08/30/2016 was reviewed. FINDINGS: The right total knee prosthesis is in good position. There is no evidence of unexpected fracture or other complication. There is postoperative soft tissue gas. There are anterior surgical skin enrrique. IMPRESSION: 1. Status post right knee arthroplasty. The prosthesis is in good position without evidence of complication. SL: [id number] 09/05/2016 [facility] Knee 3 views DX Patient Name: AZEB BEJARANO : 1950; Age: 66 years y/o Male MR: [id number] * RIGHT KNEE, 3 views History: Right knee pain and swelling, osteoarthritis. Technique: Frontal, lateral and axial patellar radiographs of the right knee were obtained. FINDINGS: There is no evidence of a significant joint effusion. There are degenerative changes. There is moderate narrowing of the medial compartment. There is moderate spurring from the medial margin of the joint and from the tibial spines. There is slight irregularity and a small osteochondral defect involving the articular surface of the medial femoral condyle. There are very mild degenerative change involving the lateral patellofemoral compartments. There is mild spurring. The joint spaces of the patellofemoral and lateral appear to be well-maintained. There is no evidence of fracture, dislocation, or acute change. IMPRESSION: 1. Degenerative change involving the right knee, primarily involving the medial compartment. Kellgren - Blayne Knee Osteoarthritis Grading Scale 2. No other significant osteoarticular abnormalities. * Kellgren - Blayne Knee Osteoarthritis Grading Scale. 0 No radiographic features of osteoarthitis. 1 Possible joint space narrowing and osteophyte formation. 2 Definite osteophyte formation with possible joint space narrowing. 3 Multiple osteophytes, definite joint space narrowing, sclerosis and possible bony deformity. 4 Large osteophytes, marked joint space narrowing, severe sclerosis and definite bony deformity. SL: [id number] 08/30/2016 [facility] Bone length scanogram DX Patient Name: AZEB BEJARANO : 1950; Age: 66 years y/o Male MR: [id number] Study: Bone length scanogram DX 08/30/2016 10:06 AM CDT Ordering Physician: MD Stiven Matt MD Clinical Indication: Other- See Note to Radiologist; Comparison: None AP right femur and tibia-fibula Advanced degenerative changes in the knee most prominent within the medial compartment with joint space narrowing, subchondral sclerosis and osteophyte formation. No other significant abnormality is demonstrated within the femur or tibia-fibula, in the AP projection. SL: [id number] 08/30/2016 [facility] Consultation Notes No Data Provided for This Section Discharge Summaries No Data Provided for This Section History and Physicals No Data Provided for This Section Vital Signs Vital Sign Value Date Comments Source Respitory Rate 16 09/07/2016 [facility] Heart Rate 79 09/07/2016 [facility] Systolic (mm Hg) 163 09/07/2016 [facility] Diastolic (mm Hg) 82 09/07/2016 [facility] Temperature Oral (F) 97.5 F 09/07/2016 [facility] Respitory Rate 16 09/07/2016 [facility] Heart Rate 79 09/07/2016 [facility] Systolic (mm Hg) 148 09/07/2016 [facility] Diastolic (mm Hg) 76 09/07/2016 [facility] Temperature Oral (F) 97.7 F 09/07/2016 [facility] Systolic (mm Hg) 169 09/07/2016 [facility] Diastolic (mm Hg) 89 09/07/2016 [facility] Heart Rate 71 09/07/2016 [facility] Respitory Rate 16 09/07/2016 [facility] Temperature Oral (F) 97.9 F 09/07/2016 [facility] BMI Calculated 34.22 09/05/2016 [facility] Weight 108.182 09/05/2016 [facility] Height 177.8 cm 09/05/2016 [facility] BMI Calculated 32.32 08/30/2016 [facility] Weight 102.182 08/30/2016 [facility] Height 177.8 cm 08/30/2016 [facility] Encounters Location Location Details Encounter Type Encounter Number Reason For Visit Attending Provider ADM Date DC Date Status Source [facility] OP Therapy Patients [id number] Stiven Matt 08/10/2016 09/09/2016 [facility] [place] [facility] Inpatient [id number] Stiven Matt 09/05/2016 09/07/2016 [facility] [place] OP Therapy Patients [id number] Stiven Matt 09/29/2016 10/29/[address] [facility] [place] OP Therapy Patients [id number] Stiven Matt 10/31/2016 11/30/2016 [facility] [place] [facility] [place] OP Therapy Patients [id number] Stiven Matt 06/26/2018 07/26/2018 [facility] [place] Procedures Procedure Code Date Perfomer Comments Source ACL - Repair of anterior cruciate ligament [id number] [facility] Biopsy of thyroid [id number] [facility] Assessment and Plan Assessment and Plan Date Source Extracted from:Title: Clinical Document Author: Yue Steen MD Date: 09/07/16 Medicine Progress Daily Chief Complaint: Hypertension Subjective and Interval history: Patient seen and examined. Patient with new complaints. No acute events. Objective: Vital Signs (last 24 hrs) Last Charted Temp Oral 97.5 DegF (SEP 07 12:00) Heart Rate Peripheral 79 bpm (SEP 07:00) Resp Rate 16 BRMIN (SEP 07:) SBP H 163mmHg (SEP 07 12:00) DBP 82 mmHg (SEP 07:) SpO2 L 93% (SEP 07:) Medications and labs reviewed [...] Benign hypertension. 4. Hyperlipidemia. 5. Osteoarthritis. PLAN and TREATMENT Continue home medications. Insulin sliding scale with Accu-Cheks. Blood pressures controlled. PT and OT. For details see orders. Plan of care discussed with the patient and spouse Disposition: Possible home today Input/Output Record In Out Bal 09/07 24hr Tot 0 0 0 09/06 24hr Tot [phone] Scheduled Meds (4):aspirin, atorvastatin, docusate (docusate sodium 100 mg oral capsule), irbesartan Unscheduled Meds: None PRN Meds (20):Al hydroxide/Mg hydroxide/simethicone (Al hydroxide/Mg hydroxide/simethicone 200 mg-200 mg-20 mg/5 mL oral suspension), Dextrose 50% in Water IV (Dextrose 50% Syringe), Dextrose 50% in Water IV (Dextrose 50% Syringe), acetaminophen-hydrocodone ([place] 7.5/325 oral tablet), acetaminophen, bisacodyl (Dulcolax Laxative), diphenhydrAMINE, glucagon, hydrALAZINE, hydromorphone, insulin aspart, insulin aspart, insulin aspart, insulin aspart, insulin aspart, insulin aspart, insulin aspart, insulin aspart, insulin aspart, ondansetron One Time Meds: None Continuous Infusions (1):Lactated Ringers 1,000 mL Labs (Last four charted values) Hgb L 13.4 (SEP 07) 14.0 (SEP 06) Hct L 38.8 (SEP 07) L 40.6 (SEP 06) PT 13.4 (AUG 30) INR 1.00 (AUG 30) PTT 27.6 (AUG 30) 09/07/2016 [facility] Plan of Care No Data Provided for This Section Social History Social History Date Source Social History TypeResponse Alcohol Past Smoking Status Never smoker; Exposure to Tobacco Smoke None; Cigarette Smoking Last 365 Days No; Reg Smoking Cessation Counseling No entered on: 09/05/16 08/30/2016 [facility] [place] Social History TypeResponse Alcohol Past Smoking Status Never smoker; Exposure to Tobacco Smoke None; Cigarette Smoking Last 365 Days No; Reg Smoking Cessation Counseling No 08/30/2016 [facility] Family History No Data Provided for This Section Advance Directives No Data Provided for This Section Functional Status No Data Provided for This Section
[2019-02-13] MEDS ORDERED: SODIUM CHLORIDE 0.9% 1000ML 1,000 ML IV STA (00:08)
[2019-02-13 00:37] LABS: BASOPHILS % 0.4 % (0.0-1.0); EOSINOPHILS # (AUTO) 0.2 (0.0-0.4); EOSINOPHILS % 2.1 % (0.0-6.0); HEMATOCRIT 46.8 % (38.2-49.6); HEMOGLOBIN 15.8 g/dL (14.0-18.0); LYMPHOCYTES # (AUTO) 2.6 (1.0-3.2); LYMPHOCYTES % 28.3 % (18.0-39.1); MEAN CORPUSCULAR HEMOGLOBIN 28.4 pg (28-32); MEAN CORPUSCULAR HGB CONC 33.8 g/dL (31-35); MEAN CORPUSCULAR VOLUME 84.2 fL (81-99); MONOCYTES # (AUTO) 0.8 (0.2-0.8); MONOCYTES % 9.1 % (4.4-11.3); NEUTROPHILS # (AUTO) 5.4 (2.1-6.9); NEUTROPHILS % 59.9 % (38.7-80.0); PLATELET COUNT 202 x10e3/uL (140-360); RED BLOOD COUNT 5.56 x10e6/uL (4.3-5.7); RED CELL DISTRIBUTION WIDTH 12.7 % (11.7-14.4)
[2019-02-13 01:00] LABS: ALBUMIN 3.6 g/dL (3.5-5.0); ALBUMIN/GLOBULIN RATIO 1.3 (0.8-2.0); ANION GAP 13.9 mmol/L (8-16); CALCIUM 9.7 mg/dL (8.4-10.2); CREATININE, SERUM 1.87 mg/dL (0.72-1.25); POTASSIUM 3.9 mmol/L (3.5-5.1)
--- NOTE | 2019-02-13 01:02 | Diagnostic Imaging Report ---
Examination: Single AP view of the chest. COMPARISON: None. INDICATION: Hypertension DISCUSSION: The lungs are well-inflated and without focal consolidation, pleural effusion, or pneumothorax. Mildly tortuous thoracic aorta with otherwise normal cardiomediastinal contour for technique. Left lower cervical surgical clips. No acute osseous abnormality. IMPRESSION: No acute cardiopulmonary abnormality. Signed by: Dr. Jean Eagle M.D. on 02/13/2019 12:59 AM
--- NOTE | 2019-02-13 01:14 | Diagnostic Imaging Report ---
EXAMINATION: Head CT without contrast. HISTORY:Tinnitus, tingling and numbness in bilateral hands, high blood pressure. COMPARISON:None. TECHNIQUE: Multidetector axial images were obtained from the foramen magnum to the vertex without contrast. The images were reconstructed using brain and bone algorithms. Thin section brain images were reformatted into coronal and sagittal planes. Dose modulation, iterative reconstruction, and/or weight based adjustment of the mA/kV was utilized to reduce the radiation dose to as low as reasonably achievable. Intravenous contrast: None IMAGE QUALITY: Acceptable. FINDINGS: Skull/scalp: No lytic or blastic. lesions. No surgical changes. Parenchyma: Nonspecific few, scattered supratentorial white matter hypodensity are likely related to small vessel ischemic changes. No acute hemorrhage, mass or acute major vascular territorial infarct. Arteries: No density suggestive of thrombosis. Dural sinuses: No abnormal density suggestive of thrombosis. Ventricles: No hydrocephalus or displacement. Extra-axial spaces: No abnormal density. Brain volume: Normal for age. Craniocervical junction: No mass, Chiari malformation, or basilar invagination. Sella: No mass. Paranasal/mastoid sinuses: Imaged portions unremarkable. IMPRESSION: No acute intracranial abnormality. Mild supratentorial white matter microvascular ischemic changes. Signed by: Dr. Kassandra Fiore M.D. on 02/13/2019 1:14 AM
[2019-02-13 02:07] VITALS: BP 135/76
== END 2019-02-13 02:21 | disposition home or self-care (01) ==
LOC: ER 23:45
DX: R42 Dizziness and giddiness (principal); E11.65 Type 2 diabetes mellitus with hyperglycemia; I10 Essential (primary) hypertension; N28.9 Disorder of kidney and ureter, unspecified; E78.5 Hyperlipidemia, unspecified; K21.9 Gastro-esophageal reflux disease without esophagitis; Z96.651 Presence of right artificial knee joint
CPT/HCPCS: 36415; 70450; 71045; 80053; 84484; 85025; 93005; 99283